=== PATIENT | female | born 1985 | race Two or more races ===

== ENCOUNTER 2024-09-13 09:39 | Outpatient (CLI) | payer OTHER | END 2024-09-13 09:45 | disposition home or self-care (01) | LOC: PRENATAL 09:39 | PROVIDERS: ATTEND Obstetrics & Gynecology Maternal & Fetal Medicine | DX: O36.80X0 Pregnancy with inconclusive fetal viability, not applicable or unspecified (principal); Z36.82 Encounter for antenatal screening for nuchal translucency; O30.90 Multiple gestation, unspecified, unspecified trimester; O99.019 Anemia complicating pregnancy, unspecified trimester; O09.529 Supervision of elderly multigravida, unspecified trimester; Z3A.14 14 weeks gestation of pregnancy ==

== ENCOUNTER 2024-10-31 09:21 | Outpatient (CLI) | payer OTHER | END 2024-10-31 09:24 | disposition home or self-care (01) | LOC: PRENATAL 09:21 | PROVIDERS: ATTEND Obstetrics & Gynecology Maternal & Fetal Medicine | DX: O44.00 Complete placenta previa NOS or without hemorrhage, unspecified trimester (principal); O30.90 Multiple gestation, unspecified, unspecified trimester; O09.529 Supervision of elderly multigravida, unspecified trimester; O99.019 Anemia complicating pregnancy, unspecified trimester; Z3A.20 20 weeks gestation of pregnancy ==

== ENCOUNTER 2024-12-26 12:54 | Outpatient (CLI) | payer OTHER | END 2024-12-26 12:55 | disposition home or self-care (01) | LOC: PRENATAL 12:54 | PROVIDERS: ATTEND Obstetrics & Gynecology Maternal & Fetal Medicine | DX: O44.03 Complete placenta previa NOS or without hemorrhage, third trimester (principal); O30.93 Multiple gestation, unspecified, third trimester; O09.523 Supervision of elderly multigravida, third trimester; O99.013 Anemia complicating pregnancy, third trimester; O32.9XX0 Maternal care for malpresentation of fetus, unspecified, not applicable or unspecified; Z14.8 Genetic carrier of other disease; Z3A.28 28 weeks gestation of pregnancy ==

== ENCOUNTER → 2025-02-06 08:50 | Outpatient (CLI) | payer OTHER ==
[~2025-02-06 08:50] MED LIST: CHILDREN'S ASPI81 MG PO; MAXFE CAPLET1 EAC1 PO; NAPROXEN500 MG PO; PRENATABS RX T1 EACH PO
== END | disposition home or self-care (01) ==
LOC: PRENATAL 08:50
PROVIDERS: ATTEND Obstetrics & Gynecology Maternal & Fetal Medicine
DX: O26.843 Uterine size-date discrepancy, third trimester (principal); O36.8130 Decreased fetal movements, third trimester, not applicable or unspecified; O44.03 Complete placenta previa NOS or without hemorrhage, third trimester; O30.93 Multiple gestation, unspecified, third trimester; O09.523 Supervision of elderly multigravida, third trimester; O99.013 Anemia complicating pregnancy, third trimester

== ENCOUNTER 2025-02-06 21:41 | Inpatient (IN) | payer OTHER ==
[~2025-02-06] VITALS: Ht 157.5 cm; Wt 1.8 kg
[2025-02-06 21:50] VITALS: BP 100/66
[2025-02-06] MEDS ORDERED: BETAMETHASONE ACETATE,SOD PHOS 30 MG/5 ML ML ONE (22:11)
[2025-02-06 22:34] LABS: URINE APPEARANCE Clear; URINE BILIRRUBIN Negative (NEGATIVE); URINE BLOOD Negative; URINE COLOR Yellow; URINE GLUCOSE Negative (NEGATIVE); URINE KETONE 15 (NEGATIVE); URINE LEUKOCYTE Trace; URINE NITRATE Negative; URINE PROTEIN Negative (NEGATIVE); URINE UROBILINOGEN 0.2 E.U./dl
[2025-02-06] MEDS ORDERED: PRENATABS RX T1 EACH PO (22:34)
[2025-02-06] MEDS ORDERED: CHILDREN'S ASPI81 MG PO (22:34)
[2025-02-06 22:36] LABS: URINE BACTERIA 1146.0 uL (0.0-1933); URINE EPITHELIAL CELLS 11.9 uL (0.0-38.8); URINE RBC 2.2 uL (0.0-20.8); URINE WBC 38.4 uL (0.0-23.2)
[2025-02-06] MEDS ORDERED: RINGERS SOLUTION,LACTATED 1,000 ML IV SCH (22:45)
[2025-02-06] MEDS ORDERED: BETAMETHASONE ACETATE,SOD PHOS 30 MG/5 ML ML IM ONE (22:45)
[2025-02-06 22:49] LABS: URINE CAST 0.00 uL (0.0-1.40)
[2025-02-06 23:10] VITALS: BP 100/64
[2025-02-06 23:11] LABS: BASO % 0.6 % (0.1-1.2); EOS # 0.10 (0.04-0.54); EOS % 1.3 % (0.7-7.0); LYMPH # 2.03 (1.18-3.74); LYMPH % 26.1 % (19.3-53.1); MEAN PLATELET VOLUME 12.20 fl (9.4-12.4); MONO # 0.52 (0.24-0.82); MONO % 6.7 % (4.7-12.5); NEUT # 5.00 (1.56-6.13); NEUT % 64.4 % (34.0-71.1); RED CELL DISTRIBUTION WIDTH 14.5 % (11.6-14.4)
[2025-02-06 23:52] LABS: INR < 0.93
[2025-02-06 23:58] LABS: ALT/SGPT 28.0 U/L (12-78); AST/SGOT 20.0 U/L (15-37); BILIRUBIN TOTAL 0.29 mg/dL (0.3-1.2); BUN CREA RATIO 11.0 (7.0-25.0); CREATININE SERUM 0.83 mg/dL (0.55-1.02); GFR 75.76; GLOBULINA 3.2 G/DL (2.4-3.5); GLUCOSE FASTING 89.0 mg/dL (65-100); OSMOLALITY SERUM 279.0 MOSM/KG (275-295)
[2025-02-07 01:18] LABS: RH POSITIVE
[2025-02-07 03:00] VITALS: BP 99/60
[2025-02-07 06:31] VITALS: BP 105/66; O2SAT 97
[2025-02-07] MEDS ORDERED: SOD FERRIC GLUC COMPLX/SUCROSE 125 MG in 0.9 % SODIUM CHLORIDE 100 ML IV SCH (09:00)
[2025-02-07] MEDS ORDERED: SOD FERRIC GLUC COMPLX/SUCROSE 62.5 MG/5 ML AMPUL IV ONE (09:35)
[2025-02-07 11:39] VITALS: BP 89/51; O2SAT 97
[2025-02-07 15:21] VITALS: BP 102/59
[2025-02-07] MEDS ORDERED: MAGNESIUM SULFATE IN WATER 4 GM/100 ML PIGGYBACK IV ONE ×2 (18:26→18:45)
[2025-02-07] MEDS ORDERED: MAGNESIUM SULFATE IN WATER 0.04 GM/ML IV.SOLN IV ONE (18:27)
[2025-02-07] MEDS ORDERED: CEFOXITIN SODIUM 2,000 MG VIAL IV ONE ×2 (18:40→18:45)
[2025-02-07] MEDS ORDERED: OXYTOCIN 10 UNITS/ML VIAL ONE ×2 (18:44→21:58)
[2025-02-07] MEDS ORDERED: ERYTHROMYCIN BASE OPHT 1GM EACH TUBE OP ONE ×3 (18:44→20:45)
[2025-02-07] MEDS ORDERED: MAGNESIUM SULFATE IN WATER 500 ML IV SCH (18:45)
[2025-02-07] MEDS ORDERED: RINGERS SOLUTION,LACTATED 1,000 ML IV SCH (20:45)
[2025-02-07] MEDS ORDERED: CHLORHEXIDINE GLUCONATE 120 ML BOTTLE TP NR (20:45)
[2025-02-07] MEDS ORDERED: OXYTOCIN 1,000 ML IV SCH (20:45)
[2025-02-07] MEDS ORDERED: SIMETHICONE 125 MG CAPSULE PO SCH (21:00)
[2025-02-07] MEDS ORDERED: DIPHENHYDRAMINE HCL 50 MG/ML VIAL 1ML IV ONE (21:30)
[2025-02-07 22:26] VITALS: BP 109/66
[2025-02-07] MEDS ORDERED: BETAMETHASONE ACETATE,SOD PHOS 30 MG/5 ML ML IM NR (22:45)
[2025-02-07 23:30] LABS: BASO % 0.2 % (0.1-1.2); EOS # 0.02 (0.04-0.54); EOS % 0.2 % (0.7-7.0); LYMPH # 0.85 (1.18-3.74); LYMPH % 10.4 % (19.3-53.1); MEAN PLATELET VOLUME 12.00 fl (9.4-12.4); MONO # 0.25 (0.24-0.82); MONO % 3.1 % (4.7-12.5); NEUT # 6.60 (1.56-6.13); NEUT % 81.2 % (34.0-71.1); RED CELL DISTRIBUTION WIDTH 14.8 % (11.6-14.4)
[2025-02-07] MEDS ORDERED: ACETAMINOPHEN WITH CODEINE 1 UDTAB TABLET PO PRN (23:45)
[2025-02-07] MEDS ORDERED: ACETAMINOPHEN WITH CODEINE 1 UDTAB TABLET PO ONE (23:45)
[2025-02-08] VITALS: BP 97/50
[2025-02-08] MEDS ORDERED: PROMETHAZINE HCL 50 MG/ML AMPUL IV SCH
[2025-02-08] MEDS ORDERED: MORPHINE SULFATE 4 MG/ML VIAL IV SCH
[2025-02-08 00:08] LABS: LYMPHOCYTE MAN 14.0 %; NEUTROPHILS MAN 86.0 %
[2025-02-08 09:00] VITALS: BP 103/61; O2SAT 99
[2025-02-08] MEDS ORDERED: IRON FUM,PS/FOLIC ACID/VITC/B3 1 CAP CAPSULE PO SCH (09:00)
[2025-02-08] MEDS ORDERED: ACETAMINOPHEN WITH CODEINE 1 UDTAB TABLET PO PRN (09:15)
[2025-02-08] MEDS ORDERED: NAPROXEN 500 MG TABLET PO NR (10:00)
[2025-02-08] MEDS ORDERED: IRON FUM,PS/FOLIC/BCOMP,C NO.9 1 CAP CAPSULE PO NR (10:00)
[2025-02-08] MEDS ORDERED: DOCUSATE SODIUM 100MG CAP PO SCH (17:00)
[2025-02-08] MEDS ORDERED: NAPROXEN 500 MG TABLET PO SCH (21:00)
[2025-02-09 00:23] VITALS: BP 90/60
[2025-02-09 08:51] VITALS: BP 120/71
[2025-02-09] MEDS ORDERED: IRON FUM,PS/FOLIC/BCOMP,C NO.9 1 CAP CAPSULE PO SCH (09:00)
[2025-02-09 17:10] VITALS: BP 111/69
[2025-02-10 00:30] VITALS: BP 100/60
[2025-02-10 08:52] VITALS: BP 122/82
[2025-02-10] MEDS ORDERED: MAXFE CAPLET1 EAC1 PO (11:26)
[2025-02-10] MEDS ORDERED: NAPROXEN500 MG PO (11:26)
[2025-02-13] MEDS ORDERED: ERYTHROMYCIN BASE OPHT 1GM EACH TUBE OP ONE ×2 (15:00)
[2025-02-13] MEDS ORDERED: OXYTOCIN 10 UNITS/ML VIAL IV ONE (15:15)
== END 2025-02-10 17:37 | disposition home or self-care (01) | DRG 786 ==
LOC: LDR 21:41 → O/R 02-07 19:41 → OB/GYN 02-07 21:09
PROVIDERS: ADMIT Obstetrics & Gynecology; ATTEND Obstetrics & Gynecology
PROC: 4A1HXCZ Monitoring of Products of Conception, Cardiac Rate, External Approach (ICD-10-PCS; 2025-02-06)
PROC: 10D00Z1 Extraction of Products of Conception, Low, Open Approach (ICD-10-PCS; principal; 2025-02-07 21:45)
DX: O32.1XX1 Maternal care for breech presentation, fetus 1 (principal); O60.14X2 Preterm labor third trimester with preterm delivery third trimester, fetus 2; O30.043 Twin pregnancy, dichorionic/diamniotic, third trimester; O36.5932 Maternal care for other known or suspected poor fetal growth, third trimester, fetus 2; O69.81X2 Labor and delivery complicated by cord around neck, without compression, fetus 2; Z3A.34 34 weeks gestation of pregnancy; Z37.2 Twins, both liveborn; O34.211 Maternal care for low transverse scar from previous cesarean delivery